=== PATIENT | female | born 1950 | race Caucasian/White ===

== ENCOUNTER → 2016-11-08 | Outpatient (CLI) | payer OTHER ==
[~2016-11-08] VITALS: Ht 153.7 cm; Wt 66.7 kg
[~2016-11-08] MED LIST: ADVAIR 100-501 EACH IH; ADVAIR 250/501 DISK IH; ALPHAGAN 0100 DROP/5 RIGHT EYE; ALPHAGAN P 0.1%; ALPHAGAN P100 DROP/5 RIGHT EYE; ATIVAN0.5 MG PO; ATROVENT 00.5 MG/2.5 IH; BAYER ASPIRIN325 M1 PO; BETIMOL BOTH EYES; BRIMONIDINE TART5 ML OP; CARTIA XT120 MG PO; COSOPT 0.5200 DROP/1; COSOPT EYE DROPS5 ML RIGHT EYE; GABAPENTIN300 MG PO; GLIPIZIDE5 MG PO; GLUCOPHAGE1000 MG PO; GLUCOPHAGE500 MG PO; GLUCOTROL XL5 MG PO; HAIR, SKIN AND1 EACH PO; HYDROCHLOROTH12.5 M3 PO; INCRUSE ELLI62.5 MCG IH; K-DUR20 MEQ PO; KENLAOG,ARISTOC60 ML PO; LO-DOSE ASPIRIN81 M2 PO; LOTENSIN20 MG PO; MELOXICAM7.5 MG PO; METFORMIN HCL500 MG PO; METOPROLOL TART50 MG PO; MOBIC7.5 MG PO; NOVOLOG PE100 UNITS/ SC; NOVOLOG100 UNIT/3 SQ; OPTH; PREDNISONE; PROAIR HFA8.5 GM IH; REQUIP1 MG PO; REQUIP2 MG PO; SIMVASTATIN80 M1 PO; SPIRIVA1 INHALATI IH; TOPROL XL50 MG PO; TRAVATAN Z5 ML OP; TRAVATAN Z5 ML RIGHT EYE; TRILIPIX135 MG PO; VENTOLIN HFA18 GM IH; VITAMIN D31000 UNIT PO; XALATAN 0.50 DROP/2. BOTH EYES; XALATAN2.5 ML RIGHT EYE; XANAX0.25 MG PO; ZOCOR40 MG PO; ZOCOR80 MG PO; advair; brimonidine
[2016-11-08 10:22] LABS: POINT-OF-CARE METER ID UU13113694
== END | disposition home or self-care (01) ==
LOC: OPR 09:27 → EDSTATUS 10:00 → OPR 10:00
PROVIDERS: Thoracic Surgery (Cardiothoracic Vascular Surgery)
PROC: 0BBC3ZX Excision of Right Upper Lung Lobe, Percutaneous Approach, Diagnostic (ICD-10-PCS; principal; 2016-11-08)
DX: J84.10 Pulmonary fibrosis, unspecified (principal); Z85.118 Personal history of other malignant neoplasm of bronchus and lung; Z87.891 Personal history of nicotine dependence; Z92.21 Personal history of antineoplastic chemotherapy; Z92.3 Personal history of irradiation; J44.9 Chronic obstructive pulmonary disease, unspecified; E11.9 Type 2 diabetes mellitus without complications; E78.5 Hyperlipidemia, unspecified; G25.81 Restless legs syndrome; Z80.3 Family history of malignant neoplasm of breast; Z91.013 Allergy to seafood; Z91.018 Allergy to other foods; Z91.012 Allergy to eggs
CPT/HCPCS: 71010; 77012; 82948; 88305; J3010

== ENCOUNTER 2017-04-27 09:27 | Inpatient (IN) | payer OTHER ==
[~2017-04-27] VITALS: Ht 152.4 cm; Wt 57.1 kg
[~2017-04-27 09:27] MED LIST changes: -XANAX0.25 MG PO; +XANAX0.5 MG PO
[2017-04-27 10:33] LABS: HEMATOCRIT 41.2 % (36.0-46.0); HEMOGLOBIN 13.5 G/DL (11.9-15.5); MCH 29.6 PG (29.0-34.0); MCHC 32.8 G/DL (30.0-36.0); MCV 90.4 FL (83-99); PLATELET COUNT 363 K/uL (156-360); RBC DIS.WIDTH-CV 15.1 % (11.8-14.6); RBC DIS.WIDTH-SD 50.3 % (39-53); RED BLOOD COUNT 4.56 M/uL (3.80-5.20); WHITE BLOOD COUNT 8.9 K/uL (4.1-10.2)
[2017-04-27 10:47] LABS: CHLORIDE 100 mEq/L (99-109); POTASSIUM 3.9 mEq/L (3.7-5.4); SODIUM 136 mEq/L (136-147)
[2017-04-27 10:49] LABS: GLUCOSE 160 mg/dL (70-99)
[2017-04-27 10:53] LABS: CREATININE 0.7 mg/dL (0.6-1.3); GFR ESTIMATE (CALCULATED) > 59 mL/min/; UREA NITROGEN (BUN) 8 mg/dL (9-23)
[2017-04-27 11:34] LABS: TROP-I INTERPRETATION NEGATIVE; TROPONIN-I < 0.01 ng/mL (0.0-0.30)
[2017-04-27 17:24] VITALS: BP 126/57
[2017-04-27 19:47] VITALS: BP 129/64
[2017-04-28 00:03] VITALS: BP 108/57
[2017-04-28 04:35] VITALS: BP 116/60
[2017-04-28 06:59] LABS: CHLORIDE 102 MEQ/L (99-109); CREATININE 0.4 MG/DL (0.6-1.3); GFR ESTIMATE (CALCULATED) > 59 mL/min/; GLUCOSE 175 mg/dL (70-99); POTASSIUM 4.5 MEQ/L (3.7-5.4); SODIUM 139 MEQ/L (136-147); UREA NITROGEN (BUN) 8 mg/dL (9-23)
[2017-04-28 07:53] VITALS: BP 148/76
[2017-04-28 08:19] LABS: BASOPHIL (%) 0 % (0-1); EOSINOPHIL (%) 0 % (0-5); HEMATOCRIT 37.3 % (36.0-46.0); HEMOGLOBIN 12.3 G/DL (11.9-15.5); IMMATURE GRANULOCYTE (%) 1.6 % (0.0-0.7); LYMPHOCYTE (%) 6.5 % (15-42); LYMPHOCYTE COUNT 0.4 K/uL (1.0-2.8); MCH 30.3 PG (29.0-34.0); MCV 91.9 FL (83-99); MONOCYTE COUNT 0.2 K/uL (0-0.8); NEUTROPHIL (%) 87.9 % (45-76); PLATELET COUNT 311 K/uL (156-360); RBC DIS.WIDTH-CV 14.9 % (11.8-14.6); RBC DIS.WIDTH-SD 50.5 % (39-53); RED BLOOD COUNT 4.06 M/uL (3.80-5.20); WHITE BLOOD COUNT 5.7 K/uL (4.1-10.2)
[2017-04-28 11:14] VITALS: BP 121/59
[2017-04-28] MEDS ORDERED: LOTEMAX5 ML RIGHT EYE ×2 (12:43→15:31)
[2017-04-28] MEDS ORDERED: BESIVANCE5 ML RIGHT EYE (12:44)
[2017-04-28] MEDS ORDERED: ILEVRO1.7 ML RIGHT EYE (12:44)
[2017-04-28] MEDS ORDERED: DUREZOL 0.100 DROP/5 RIGHT EYE (12:45)
[2017-04-28] MEDS ORDERED: BUPROPION HCL150 M2 PO (13:20)
[2017-04-28] MEDS ORDERED: PREDNISONE10 MG PO (13:22)
[2017-04-28 16:05] VITALS: BP 133/70
[2017-04-29] VITALS (7 sets, daily range): BP systolic 128–158; BP diastolic 67–83
[2017-04-29 04:21] LABS: BASOPHIL (%) 0 % (0-1); EOSINOPHIL (%) 0 % (0-5); HEMATOCRIT 35.6 % (36.0-46.0); HEMOGLOBIN 11.8 G/DL (11.9-15.5); IMMATURE GRANULOCYTE (%) 1.3 % (0.0-0.7); LYMPHOCYTE (%) 4.2 % (15-42); LYMPHOCYTE COUNT 0.4 K/uL (1.0-2.8); MCHC 33.1 G/DL (30.0-36.0); MCV 90.6 FL (83-99); MONOCYTE (%) 6.8 % (3-12); MONOCYTE COUNT 0.7 K/uL (0-0.8); NEUTROPHIL (%) 87.7 % (45-76); NEUTROPHIL COUNT 9.2 K/uL (1.8-6.4); PLATELET COUNT 315 K/uL (156-360); RBC DIS.WIDTH-CV 14.4 % (11.8-14.6); RBC DIS.WIDTH-SD 48.7 % (39-53); RED BLOOD COUNT 3.93 M/uL (3.80-5.20); WHITE BLOOD COUNT 10.5 K/uL (4.1-10.2)
[2017-04-29 04:59] LABS: CHLORIDE 100 mEq/L (99-109); POTASSIUM 4.3 mEq/L (3.7-5.4); SODIUM 139 mEq/L (136-147)
[2017-04-29 05:00] LABS: GLUCOSE 178 mg/dL (70-99)
[2017-04-29 05:04] LABS: CREATININE 0.6 mg/dL (0.6-1.3); GFR ESTIMATE (CALCULATED) > 59 mL/min/
[2017-04-29 05:05] LABS: UREA NITROGEN (BUN) 9 mg/dL (9-23)
[2017-04-30 03:30] VITALS: BP 130/62
[2017-04-30 08:11] VITALS: BP 132/87
[2017-04-30 11:33] VITALS: BP 139/70
[2017-04-30 15:29] VITALS: BP 147/78
[2017-04-30 19:48] VITALS: BP 154/71
[2017-04-30 23:31] VITALS: BP 148/75
[2017-05-01 03:32] VITALS: BP 141/65
[2017-05-01 07:05] VITALS: BP 143/79
[2017-05-01 11:13] VITALS: BP 135/71
[2017-05-01 14:59] VITALS: BP 119/70
[2017-05-01 20:29] VITALS: BP 132/71
[2017-05-02 00:09] VITALS: BP 147/81
[2017-05-02 03:52] VITALS: BP 136/74
[2017-05-02 07:37] VITALS: BP 125/86
[2017-05-02] MEDS ORDERED: DOXYCYCLINE HY100 M3 PO (10:07)
[2017-05-02 10:57] VITALS: BP 118/62
== END 2017-05-02 13:10 | disposition home or self-care (01) | DRG 189 ==
LOC: EME 09:27 → EDOF 12:44 → 2EAST 12:44 → ENRESERV 12:46 → EDOF 13:25 → ENRESERV 14:17 → 2EAST 17:08 → ENPENDDIS 05-02 → 2EAST 05-02 13:10
PROVIDERS: Emergency Medicine; Internal Medicine
DX: J96.01 Acute respiratory failure with hypoxia (principal); J18.9 Pneumonia, unspecified organism; Y95 Nosocomial condition; J44.1 Chronic obstructive pulmonary disease with (acute) exacerbation; J44.0 Chronic obstructive pulmonary disease with (acute) lower respiratory infection; J98.19 Other pulmonary collapse; Z85.118 Personal history of other malignant neoplasm of bronchus and lung; E11.9 Type 2 diabetes mellitus without complications; E78.5 Hyperlipidemia, unspecified; H40.9 Unspecified glaucoma; I10 Essential (primary) hypertension; R00.0 Tachycardia, unspecified; M19.90 Unspecified osteoarthritis, unspecified site; F17.200 Nicotine dependence, unspecified, uncomplicated; Z99.81 Dependence on supplemental oxygen; Z92.21 Personal history of antineoplastic chemotherapy; Z92.3 Personal history of irradiation; Z98.61 Coronary angioplasty status
CPT/HCPCS: 71045; 71046; 71275; 80048; 80202; 82948; 83605; 84484; 85025; 85027; 87040; 87070; 87205; 87449; 87502; 93005; 94010; 94640; 94640 76; 94668; 94760; 94799; 99202; 99281; 99285; J0692; J1650; J1815; J2930; J3370; J7030; J7050; J7512